=== PATIENT | male | born 1985 ===

== ENCOUNTER 2018-01-14 17:52 | Emergency (ER) | payer BC ==
--- NOTE | 2018-01-14 18:34 | RAD ---
INDICATION: Right shoulder pain COMPARISON: None TECHNIQUE: Routine frontal, Y and axial views were obtained. FINDINGS: The bony structures, joint spaces, and soft tissues are normal for age. IMPRESSION: NEGATIVE EXAMINATION.
--- NOTE | 2018-01-14 18:34 | UC ---
Shoulder Pain HPI - HPI Summary HPI Summary: This is hola Oreilly documenting for attending Amanda Navarrete MD. This patient is a 32 year old M presenting to [facility] with a chief complaint of right shoulder pain since 2 weeks ago. Patient reports the pain began after he slid on his front while playing softball. The patient rates the pain 6/10 in severity. Symptoms aggravated by movement, specifically trying to throw a softball. Symptoms alleviated by nothing. Patient denies numbness or tingling. no analgesia taken. no ice applied RHD No arm weakness no h/o similar injury Pt's medications reviewed this visit - History of Current Complaint Chief Complaint: UCUpperExtremity Stated Complaint: SHOULDER INJURY Time Seen by Provider: 01/14/18 18:15 Hx Obtained From: Patient Onset/Duration: Gradual Onset, Lasting Weeks - 2 weeks, Still Present Timing: Constant Severity Initially: Mild Severity Currently: Mild Location Of Pain: Is Discrete @ - right shoulder Pain Intensity: 6 Pain Scale Used: 0-10 Numeric Aggravating Factor(s): Movement Alleviating Factor(s): Nothing Associated Signs And Symptoms: Positive: Swelling. Negative: Numbness/Tingling - Allergies/Home Medications Allergies/Adverse Reactions: Allergies Allergy/AdvReac Type Severity Reaction Status Date / Time No Known Allergies Allergy Verified 01/14/18 18:06 Home Medications: Home Medications NK [No Home Medications Reported] 01/14/18 [History Confirmed 01/14/18] PMH/Surg Hx/FS Hx/Imm Hx Previously Healthy: Yes - Surgical History Surgical History: None Surgery Procedure, Year, and Place: denies - Family History Known Family History: Positive: None - Social History Occupation: Employed Full-time Lives: With Family Alcohol Use: Occasionally Substance Use Type: None Smoking Status (MU): Never Smoked Tobacco Review of Systems Constitutional: Negative - negative fever Cardiovascular: Negative - negative chest pain Musculoskeletal: Arthralgia - right shoulder pain Neurological: Negative - negative numbness, negative tingling All Other Systems Reviewed And Are Negative: Yes Physical Exam - Summary Physical Exam Summary: Vital Signs Reviewed: Yes A+Ox3, no distress Eyes: Conjunctiva Clear ENT: Hearing grossly normal neck: supple Respiratory: Positive: No respiratory distress, No accessory muscle use Cardiovascular: skin color reflect adequate perfusion Musculoskeletal Exam: + abduct, extend RUE without difficulty Pt with point TTP right anterior shoulder Pain reproduced if simulate overhand throw as forward coming. + flex/ext elbow, pronate/supinate Neurological: Positive: Alert, ambulatory without difficulty 5/5 grasp + thumb up, a ok, finger spread Psychological: Positive: Normal Response To Family Skin: Positive: no rash, no ecchymosis Triage Information Reviewed: Yes Vital Signs: Initial Vital Signs Temp 98.2 F 01/14/18 18:01 Pulse 75 01/14/18 18:01 Resp 18 01/14/18 18:01 BP 127/79 01/14/18 18:01 Pulse Ox 99 01/14/18 18:01 Diagnostics - Radiology Right shoulder XR Xray Interpretation: No Acute Changes - Impression: negative examination. Dr. Navarrete has reviewed this report. Shoulder Course/Dx - Differential Dx/Diagnosis Provider Diagnoses: right shoulder pain Discharge - Sign-Out/Discharge Documenting (check all that apply): Patient Departure - Discharge Plan Condition: Stable Disposition: HOME Patient Education Materials: Shoulder Sprain (ED) Referrals: [facility] [Outside] [facility] [Provider Group] - 1 Day (Please call for an appointment tomorrow) Additional Instructions: - Apply ice (20 min at a time) every 2-3 hours for the next 2-3 days --Okay to alternate ibuprofen (Advil, Motrin) and Tylenol every 3 hours for pain. Take with food. Do NOT take for more than 4-5 days. - avoid further injury to the shoulder - rest from sports until you are evaluated in follow-up - Contact the sports medicine office to schedule a follow-up appointment this week - Billing Disposition and Condition Condition: STABLE Disposition: Home
== END 2018-01-14 19:08 | disposition home or self-care (01) ==
LOC: UCEAST 17:52
DX: M25.511 Pain in right shoulder (principal)
CPT/HCPCS: 99201; G0463

== ENCOUNTER 2019-01-17 12:22 | Emergency (ER) | payer BC ==
[2019-01-17] MEDS ORDERED: Carisoprodol TAB* 350 MG PO ONE (13:10)
[2019-01-17] MEDS ORDERED: Ibuprofen TAB* 600 MG PO ONE (13:12)
--- NOTE | 2019-01-17 13:20 | UC ---
Shoulder Pain HPI - HPI Summary HPI Summary: sudden onset of pain in left scapula after twisting to get in the care--no previous injuries left shoulder, no trauma---painful rom n/m/c intact distally - History of Current Complaint Chief Complaint: UCUpperExtremity Stated Complaint: SHOULDER PAIN Time Seen by Provider: 01/17/19 13:00 Hx Obtained From: Patient Onset/Duration: Sudden Onset, Lasting Minutes - 30, Still Present Timing: Constant Severity Initially: Severe Severity Currently: Severe Location Of Pain: Is Discrete @ Pain Intensity: 10 Pain Scale Used: 0-10 Numeric Character: Spasmodic, Stiffness Aggravating Factor(s): Movement Alleviating Factor(s): Rest Associated Signs And Symptoms: Positive: Negative Related History: Dominant Hand Right - Allergies/Home Medications Allergies/Adverse Reactions: Allergies Allergy/AdvReac Type Severity Reaction Status Date / Time No Known Allergies Allergy Verified 01/17/19 12:52 PMH/Surg Hx/FS Hx/Imm Hx Previously Healthy: Yes - Surgical History Surgical History: None Surgery Procedure, Year, and Place: denies - Family History Known Family History: Positive: None - Social History Occupation: Employed Full-time Lives: With Family Alcohol Use: Occasionally Substance Use Type: None Smoking Status (MU): Never Smoked Tobacco Review of Systems All Other Systems Reviewed And Are Negative: Yes Constitutional: Positive: Negative Skin: Positive: Negative Eyes: Positive: Negative ENT: Positive: Negative Respiratory: Positive: Negative Cardiovascular: Positive: Negative Gastrointestinal: Positive: Negative Motor: Positive: Negative Neurovascular: Positive: Negative Musculoskeletal: Positive: Arthralgia - medial left scapula, Myalgia - muscles medial to left scapula Neurological: Positive: Negative Psychological: Positive: Negative Is Patient Immunocompromised?: No Physical Exam Triage Information Reviewed: Yes Appearance: Well-Appearing, No Pain Distress, Well-Nourished Vital Signs: Initial Vital Signs Temp 98 F 01/17/19 12:50 Pulse 77 01/17/19 12:50 Resp 16 01/17/19 12:50 BP 109/71 01/17/19 12:50 Pulse Ox 100 01/17/19 12:50 Vital Signs Reviewed: Yes Eye Exam: Normal Eyes: Positive: Conjunctiva Clear ENT Exam: Normal ENT: Positive: Normal ENT inspection, Hearing grossly normal. Negative: Trismus , Muffled voice, Hoarse voice Neck exam: Normal Neck: Positive: Supple, Nontender, No Lymphadenopathy Respiratory Exam: Normal Respiratory: Positive: Chest non-tender, No respiratory distress, No accessory muscle use Cardiovascular Exam: Normal Cardiovascular: Positive: RRR, Pulses Normal, Brisk Capillary Refill Musculoskeletal: Positive: Strength Intact, No Edema, ROM Limited @ - left shoulder due to scapula pain Neurological Exam: Normal Neurological: Positive: Alert, Muscle Tone Normal Psychological Exam: Normal Skin Exam: Normal Re-Evaluation - Re-Evaluation First Eval Change: Improved - patient is able to comfortably take arm out of sling but he is unable to lean back comfortably on stretcher---will give 1 hydrocodone Second Eval Change: Improved - resting comfortably leaning back on stretcher---will d/c Shoulder Course/Dx - Course Course Of Treatment: ice, gentle movement and massage---ibuprofen, soma prn pain, may add hydrocodone if has continued pain - Differential Dx/Diagnosis Provider Diagnosis: Muscle spasm of left shoulder Discharge - Sign-Out/Discharge Documenting (check all that apply): Patient Departure All imaging exams completed and their final reports reviewed: No Studies - Discharge Plan Condition: Stable Disposition: HOME Prescriptions: Carisoprodol TAB* [Soma TAB*] 350 mg PO TID PRN #15 tab MDD 3 PRN Reason: muscle spasm Hydrocodone/Acetaminophen [Hydrocodone/Acetaminophen 5-325 mg] 1 tab PO Q6HR PRN #10 tab MDD 4 PRN Reason: pain not relieved by ibuprofen Ibuprofen TAB* [Motrin TAB* 600 MG] 600 mg PO Q6H PRN #40 tab PRN Reason: pain Patient Education Materials: Muscle Spasm (ED), Back Pain (ED) Referrals: [facility] [Outside] - 4 Days - Billing Disposition and Condition Condition: STABLE Disposition: Home
[2019-01-17] MEDS ORDERED: HYDROcodone/ACETAMIN 5-325 MG* 1 TAB PO ONE (14:05)
[2019-01-17 14:46] VITALS: BP 115/72
== END 2019-01-17 14:53 | disposition home or self-care (01) ==
LOC: UCEAST 12:22
DX: M62.838 Other muscle spasm (principal)
CPT/HCPCS: 99212; A9270-GY; G0463